=== PATIENT | female | born 1990 | race African-American/Black ===

== ENCOUNTER 2019-02-07 13:59 | Outpatient (CLI) | payer MEDICAID ==
[2019-02-07 14:24] VITALS: BP 95/61
[2019-02-07 15:35] LABS: BILIRUBIN,URINE NEGATIVE (NEGATIVE); GLUCOSE, URINE (UA) NEGATIVE (NEGATIVE); KETONES,URINE (UA) NEGATIVE (NEGATIVE); LEUKOCYTE ESTERASE, URINE LARGE (NEGATIVE); NITRITE,URINE NEGATIVE (NEGATIVE); OCCULT BLOOD,URINE LARGE (NEGATIVE); PH,URINE 5.5 PH (5.0-7.5); PROTEIN,URINE NEGATIVE (NEGATIVE); UROBILINOGEN,URINE 0.2 (NORMAL) E.U./dL (NORMAL)
[2019-02-07 15:49] LABS: BACTERIA,URINE None Seen /HPF (None Seen); CLARITY,URINE CLEAR (CLEAR); RBC,URINE TNTC /HPF (0-5); SQUAMOUS EPITHELIAL CELL,UR FEW Squamous (<= Few)
--- NOTE | 2019-02-07 17:01 | Ultrasound Report ---
Reason: Vaginal bleeding Procedure Date: 02/07/2019 Accession Number: [id number] / [id number] Procedure: US - OB Transvaginal CPT Code: FULL RESULT: EXAM: FIRST TRIMESTER OBSTETRIC ULTRASOUND (Less than 11 weeks) EXAM DATE: 02/07/2019 03:30 PM. CLINICAL HISTORY: Vaginal bleeding, check cervix size LMP: Unknown. COMPARISONS: None. TECHNIQUE: Transvaginal ultrasound examination with static image documentation. CLINICAL DATES: EGA 26 weeks with JOSEPH 11 15 19 A viable intrauterine gestation. heart rate: 144 BPM. MATERNAL STRUCTURES: Cervix: Long and closed. Measures 4.4 cm in long axis (measured transvaginally). Other: None. IMPRESSION: 1. Cervix measured transvaginally, measures 4.4 cm in long axis. Closed internal os. RADIA
--- NOTE | 2019-02-22 04:47 | PROVIDER PROGRESS NOTE ---
- HPI Chief Complaint: Vaginal bleeding Current : Current EDU 05/16/19 Gestation 26 Weeks and 0 Days 1 Para 0 Vital Signs Temperature 98.6 F 02/07/19 14:20 Heart Rate 77 02/07/19 14:20 Respiratory Rate 18 02/07/19 14:20 Blood Pressure 95/61 02/07/19 14:20 O2 Saturation 99 02/07/19 14:20 Temperature 98.6 F 02/07/19 14:20 Heart Rate 77 02/07/19 14:20 Respiratory Rate 18 02/07/19 14:20 Blood Pressure 95/61 02/07/19 14:20 O2 Saturation 99 02/07/19 14:20 - Exam GEN: NAD Vaginitis panel : BV+ Sarah + TVCL 4.4 cm GCCT negx2 UA wnl EFM AGA TOCO: quiet - Procedures OB Procedure Performed: NST (AGA) Diagnosis/Indication for NST: labor NST Procedure: AGA Service Date of procedure: 02/07/19 Findings: Vaginitis panel: POS for BV and yeast Neg GCCT Neg UA TVCL 4.4 cm FFN neg Reassuring exam NST AGA for 26 wga TOCO: quiet - Plan Plan: Discharged to home with warning signs Rx for metronidazole and clindamycn cream called to preferred pharmacy
== END 2019-02-07 17:15 | disposition home or self-care (01) ==
LOC: WFO 13:59 → FBP 14:01 → WFO 17:15
PROVIDERS: ATTEND Obstetrics & Gynecology
DX: O23.592 Infection of other part of genital tract in pregnancy, second trimester (principal); O98.812 Other maternal infectious and parasitic diseases complicating pregnancy, second trimester; B37.3 Candidiasis of vulva and vagina; Z3A.26 26 weeks gestation of pregnancy
CPT/HCPCS: 76817; 81001; 82731; 87086; 99214